=== PATIENT | male | born 1980 | race Caucasian/White ===

== ENCOUNTER 2019-03-03 14:53 | Emergency (ER) | payer OTHER ==
[~2019-03-03] VITALS: Ht 175.3 cm; Wt 77.1 kg
[~2019-03-03 14:53] MED LIST: ADVIL200 M1 PO; DOXYCYCLINE HY100 MG PO; LOTRISONE CREAM15 GM TOP; PERCOCET 5-3251 EACH PO
[2019-03-03] MEDS ORDERED: SERTRALINE HCL50 MG PO (14:59)
== END 2019-03-03 15:50 | disposition home or self-care (01) ==
LOC: ED 14:53
PROC: 0HQ1XZZ Repair Face Skin, External Approach (ICD-10-PCS; principal; 2019-03-03)
DX: S01.81XA Laceration without foreign body of other part of head, initial encounter (principal); Z79.899 Other long term (current) drug therapy; Y04.0XXA Assault by unarmed brawl or fight, initial encounter
CPT/HCPCS: 12011; 99283-25